=== PATIENT | female | born 1965 | race Caucasian/White ===

== ENCOUNTER 2016-08-01 17:02 | Emergency (ER) | payer OTHER, MEDICAID ==
[2016-08-01 18:15] VITALS: BP 182/100; PULSE 106; RESP 18; TEMP 98.9; O2SAT 97
[2016-08-01 20:23] LABS: AUTOMATED NEUTROPHIL # 3.5 TH/MM3 (1.8-7.7); BASOPHIL # 0.1 TH/MM3 (0-0.2); BASOPHIL % 1.2 % (0.0-2.0); EOSINOPHIL # 0.3 TH/MM3 (0-0.4); EOSINOPHIL % 5.5 % (0.0-4.0); HEMATOCRIT 33.6 % (35.0-46.0); HEMO FLAGS DIFF FINAL; LYMPH % 24.1 % (9.0-44.0); LYMPHOCYTE # 1.4 TH/MM3 (1.0-4.8); MEAN CELL VOLUME 81.8 FL (80.0-100.0); MEAN CORPUSCULAR HEMOGLOBIN 26.9 PG (27.0-34.0); MEAN CORPUSCULAR HGB CONC 32.9 % (32.0-36.0); MONO % 9.9 % (0.0-8.0); NEUT % 59.3 % (16.0-70.0); PLATELET COUNT 298 TH/MM3 (150-450); RED BLOOD COUNT 4.11 MIL/MM3 (4.00-5.30); RED CELL DISTRIBUTION WIDTH 16.5 % (11.6-17.2); WHITE BLOOD COUNT 5.8 TH/MM3 (4.0-11.0)
--- NOTE | 2016-08-01 20:25 | PD ---
HPI Chief Complaint: Psychiatric Symptoms Time Seen by Provider: 19:56 Travel History International Travel<30 days: No Contact w/Intl Traveler<30days: No Traveled to known affect area: No History of Present Illness HPI Patient is a 51-year-old male with history of end-stage renal disease on hemodialysis Thursday/Thursday/Thursday, diabetes, neuropathy, vision and short- term memory loss here with depression as a Cabrera act. Per the Cabrera act form patient stated that he wanted to "eat a bullet", advised that he is very depressed and set up with life. Crying to police inspector, needing help for his depression. Patient states that his in November/December 2015 and patient has been depressed ever since but is "dealing with it". He feels depressed but does not feel suicidal at this moment. He had dialysis today and does not have any medical complaints. PFSH Past Medical History Diabetes: Yes Patient Takes Glucophage: Yes Dialysis: Yes Implanted Vascular Access Dvce: Yes (VASOCATH R. CHEST) Tetanus Vaccination: Unknown Influenza Vaccination: No ?: Not Past Surgical History Other Surgery: Yes (VASOCATH R. CHEST) Social History Alcohol Use: No Tobacco Use: No Substance Use: No Allergies-Medications (Allergen,Severity, Reaction): Coded Allergies: Lyrica (Verified Allergy, Severe, 08/01/16) Reported Meds & Prescriptions Reported Meds & Active Scripts Active Reported Gabapentin 600 Mg Tab 600 Mg PO TID Paxil (Paroxetine HCl) 40 Mg Tab 40 Mg PO DAILY Metoprolol Tartrate 25 Mg Tab 25 Mg PO BID Review of Systems Except as stated in HPI: all other systems reviewed are Neg Physical Exam Narrative GENERAL: Well-appearing adult male appearing older than stated age in no acute distress SKIN: Warm and dry. Hemodialysis catheter in the right subclavian. HEAD: Normocephalic. EYES: No scleral icterus. No injection or drainage. ENT: No nasal bleeding or discharge. Mucous membranes pink and moist. NECK: Supple CARDIOVASCULAR: Regular rate and rhythm. No murmur appreciated. RESPIRATORY: No accessory muscle use. Clear to auscultation. Breath sounds equal bilaterally. GASTROINTESTINAL: Abdomen soft, non-tender, nondistended. Obese MUSCULOSKELETAL: No obvious deformities. Normal gait, ambulates with cane No edema. NEUROLOGICAL: Awake and alert. Motor grossly within normal limits. Normal speech. PSYCHIATRIC: Depressed but denies suicidal ideation at this time. No plan. Denies delusions, hallucinations, homicidal ideation. Data Data Last Documented VS Vital Signs Date Time Temp Pulse Resp B/P Pulse Ox O2 Delivery O2 Flow Rate FiO2 08/01/16 18:15 98.9 106 18 182/100 97 Orders Complete Blood Count With Diff (08/01/16 19:43) Comprehensive Metabolic Panel (08/01/16 19:43) Drug Screen, Random Urine (08/01/16 19:43) Alcohol (Ethanol) (08/01/16 19:43) Psych Screen (08/01/16 19:43) Gabapentin (Neurontin) (08/02/16 09:00) Paroxetine (Paxil) (08/01/16 20:45) Metoprolol Tartrate (Lopressor) (08/01/16 21:00) Metoprolol Tartrate Inj (Lopressor Inj) (08/01/16 20:45) Labs Laboratory Tests Test 08/01/16 19:50 White Blood Count 5.8 TH/MM3 Red Blood Count 4.11 MIL/MM3 Hemoglobin 11.1 GM/DL Hematocrit 33.6 % Mean Corpuscular Volume 81.8 FL Mean Corpuscular Hemoglobin 26.9 PG Mean Corpuscular Hemoglobin 32.9 % Concent Red Cell Distribution Width 16.5 % Platelet Count 298 TH/MM3 Mean Platelet Volume 9.5 FL Neutrophils (%) (Auto) 59.3 % Lymphocytes (%) (Auto) 24.1 % Monocytes (%) (Auto) 9.9 % Eosinophils (%) (Auto) 5.5 % Basophils (%) (Auto) 1.2 % Neutrophils # (Auto) 3.5 TH/MM3 Lymphocytes # (Auto) 1.4 TH/MM3 Monocytes # (Auto) 0.6 TH/MM3 Eosinophils # (Auto) 0.3 TH/MM3 Basophils # (Auto) 0.1 TH/MM3 CBC Comment DIFF FINAL Differential Comment Sodium Level 139 MEQ/L Potassium Level 4.5 MEQ/L Chloride Level 103 MEQ/L Carbon Dioxide Level 29.5 MEQ/L Anion Gap 7 MEQ/L Blood Urea Nitrogen 20 MG/DL Creatinine 3.95 MG/DL Estimat Glomerular Filtration 12 ML/MIN Rate Random Glucose 344 MG/DL Calcium Level 8.6 MG/DL Total Bilirubin 0.3 MG/DL Aspartate Amino Transf 13 U/L (AST/SGOT) Alanine Aminotransferase 17 U/L (ALT/SGPT) Alkaline Phosphatase 97 U/L Total Protein 7.9 GM/DL Albumin 3.2 GM/DL Ethyl Alcohol Level LESS THAN 3 MG/DL MDM Medical Decision Making Medical Screen Exam Complete: Yes Emergency Medical Condition: Yes Medical Record Reviewed: Yes Differential Diagnosis 51-year-old male with history of ESRD on HD, DM here with complaint of depression and intermittent suicidal ideation, none at this time. Differential includes depression, adjustment reaction, suicidal ideation. Narrative Course IV established, blood obtained. CBC, CMP, blood alcohol level notable for baseline renal insufficiency with BUN 20, creatinine 3.95. Urine drug screen remains pending at the time this dictation. Slightly hypertensive, given IV metoprolol as well as his home oral metoprolol, gabapentin and sertraline. Patient medically clear for psychiatric evaluation. Diagnosis Primary Impression: Suicidal ideation Additional Impression: End stage renal disease on dialysis Caprice Gavin MD Aug 01, 2016 20:25
[2016-08-01] MEDS ORDERED: GABA600T PO (20:41)
[2016-08-01] MEDS ORDERED: METO25TA3 PO (20:41)
[2016-08-01] MEDS ORDERED: PAXI40TA PO (20:41)
[2016-08-01 20:42] LABS: ANION GAP 7 MEQ/L (5-15)
[2016-08-01 20:45] LABS: ALKALINE PHOSPHATASE 97 U/L (45-117); ALT (GPT) 17 U/L (10-53); AST (GOT) 13 U/L (15-37); BICARBONATE 29.5 MEQ/L (21.0-32.0); BLOOD UREA NITROGEN 20 MG/DL (7-18); CHLORIDE 103 MEQ/L (98-107); GLOMERULAR FILTRATION RATE 12 ML/MIN (>89); POTASSIUM 4.5 MEQ/L (3.5-5.1); SODIUM (NA) 139 MEQ/L (136-145); TOTAL BILIRUBIN ADULT 0.3 MG/DL (0.2-1.0)
[2016-08-01] MEDS ORDERED: METOPROLOL TARTRATE 5 MG/5 ML VIAL IV PUSH ONE ×2 (20:45→22:45)
[2016-08-01] MEDS ORDERED: GLUCAGON 1 MG/ML VIAL OTHER PRN (21:15)
[2016-08-01] MEDS ORDERED: DEXTROSE 50% IN WATER 50 ML VIAL(D50) IV PUSH PRN (21:15)
[2016-08-01] MEDS ORDERED: GABAPENTIN 300 MG CAP PO ONE (21:30)
[2016-08-01] MEDS: METOPROLOL TARTRATE 25 MG TAB PO SCH (21:37)
[2016-08-01] MEDS: PARoxetine HCL 20 MG TAB PO SCH (21:37)
[2016-08-01] MEDS: INSULIN NovoLIN REGULAR SUPPLEMENTAL SCALE SQ SCH (21:38)
[2016-08-01 21:46] VITALS: BP 187/106; PULSE 98; RESP 16; O2SAT 99
[2016-08-01 22:57] VITALS: BP 145/79; PULSE 84; RESP 16; O2SAT 98
[2016-08-02 01:37] VITALS: BP 137/72; PULSE 71; RESP 16; TEMP 98.5; O2SAT 99
[2016-08-02 06:04] VITALS: BP 168/72; PULSE 81; RESP 16; TEMP 98.5; O2SAT 98
[2016-08-02] MEDS ORDERED: INSULIN NovoLIN REGULAR SUPPLEMENTAL SCALE SQ SCH (07:00)
[2016-08-02 07:30] VITALS: BP 134/74; PULSE 92; RESP 18; TEMP 98.9; O2SAT 95
[2016-08-02] MEDS: INSULIN NovoLIN REGULAR SUPPLEMENTAL SCALE SQ SCH ×2 (08:24→11:30)
[2016-08-02] MEDS: GABAPENTIN 300 MG CAP PO SCH ×2 (08:26→13:00)
[2016-08-02] MEDS: METOPROLOL TARTRATE 25 MG TAB PO SCH (08:27)
[2016-08-02] MEDS: PARoxetine HCL 20 MG TAB PO SCH (09:42)
--- NOTE | 2016-08-02 13:59 | MB ---
cc: MARNI CADET DATE OF CONSULTATION: 08/02/2016 REASON FOR CONSULTATION: This is a 51-year-old male with a history of end stage renal disease on he modalities is Thursday, Thursday, Thursday. He has a diabetes neuropathy vision and short-term memory problem. He also has some depression and was Cabrera acted. Per Cabrera act the patient had stated that he wanted to "eat a bullet", the patient denies that. The patient is somewhat fed up with his life because of his physical problem and wants to go out of state because he is homeless. He denies any crying spells denies any auditory or visual hallucinations. He stated that he has been taking Celexa with some help and willing to continue to see a psychiatrist as an outpatient if needed. The patient denied any active and/or passive suicidal and/or homicidal ideation, intentions or plans. He claimed that his in November or December and since that time it has been very difficult for him to deal with being alone. He would like to get out of here and probably go out of state he has a brother who is willing to help him according to the patient. BACKGROUND HISTORY: The patient was born in [place]. He has one brother. He was close to his mother. His father about a year ago. His childhood was described as happy. He denied any physical, verbal or sexual abuse growing up. He quit in 9th grade and he is tying to finish [employer] He works in the [employer]. He was at the age of 20 they do not have any children and his last year, she also was working at [employer]. The patient denied any alcohol or drug use and/or abuse but he has been having lot of medical issues with kidney problems, diabetes and now some memory problems. PAST PSYCHIATRIC HISTORY The patient denied any inpatient psychiatric hospitalization denied any suicide attempt. Denied any mood swings. FAMILY HISTORY: Family history is also negative for any emotional difficulty nervous breakdown or suicide attempt. MENTAL STATUS EXAM This is a 51-year-old white male who looks about the same as his stated age. He was alert but avoided eye contact, oriented x3, cooperative, casually dressed. His speech was slow without any evidence of loose associations or flight of ideas or pressured speech. His mood was described as feeling frustrated having to live with this chronic illness and get set up and now since his is not there. He also feels lonely but denies any active and/or passive suicidal and/or homicidal ideation, intentions or plans. Denied any auditory or visual hallucinations. No evidence of any paranoid delusion. He seems to be of average intelligence with fairly good memory, mildly impaired recent memory. His insight is fair and his judgment seems to be okay on hypothetical situation. IMPRESSION Adjustment disorder with mixed emotions. RECOMMENDATIONS At the present time the patient denies any suicidal and/or homicidal ideation, intentions or plans. Denies any auditory or visual hallucinations. No behavior or management problem reported. He wants to work as an outpatient and go out of state with his brother. In my opinion he does not meet the Cabrera ACT criteria so I will lift the Cabrera act and he can work as an outpatient and I thank you very much for allowing me to participate in the care of this patient. Marni Quinn /1:00 PM /1:54 PM
== END 2016-08-02 14:35 | disposition home or self-care (01) ==
LOC: NEPA 17:02
DX: F32.9 Major depressive disorder, single episode, unspecified (principal); N18.6 End stage renal disease; E11.22 Type 2 diabetes mellitus with diabetic chronic kidney disease; R41.3 Other amnesia; R45.851 Suicidal ideations; Z99.2 Dependence on renal dialysis; Z79.4 Long term (current) use of insulin
CPT/HCPCS: 80053; 80320; 85025; 96372; 96374